=== PATIENT | female | born 1940 | race Caucasian/White ===

== ENCOUNTER 2017-11-14 12:00 | Inpatient (IN) | payer MEDICARE, MEDICAID, SELFPAY ==
[2017-11-14] VITALS (8 sets, daily range): BP systolic 117–155; BP diastolic 68–81; PULSE 72–83; RESP 10–20; TEMP 36.6–36.9; O2SAT 96–100; BMI 19.7
--- NOTE | 2017-11-14 12:32 | CT_ITS ---
STUDY: CT BRAIN WITHOUT CONTRAST REASON FOR EXAM: Female, 77 years old. Drowsiness. RADIATION DOSAGE (If Supplied By Facility): CTDIvol = ( 44.99 ) mGy, DLP = ( 762.36 ) mGycm TECHNIQUE: Transaxial CT imaging of the brain was performed without administration of intravenous contrast material. Individualized dose optimization techniques were used for this CT. COMPARISON: Comparison is made with prior study dated May 15, 2017. FINDINGS: Normal soft tissue structures. The patient is status post right frontal temporal parietal craniotomy. This is unchanged. There is evidence of a prominent CSF space overlying the right frontal lobe most likely secondary to prior surgery. This is unchanged. Stable encephalomalacia in the anterior aspect of the right frontal lobe most likely postsurgical nature. There are areas of decreased attenuation within the white matter tracts of the supratentorial brain, consistent with microvascular disease changes. Normal basal ganglia and thalami. Normal brainstem. Normal cerebellum. There is no intracranial hemorrhage. There are no findings of an acute ischemic infarction. Atherosclerotic calcification of the cavernous portions of the internal carotid arteries bilaterally. Normal visualized paranasal sinuses. CT/Brain/Head without Contrast IMPRESSION: Postoperative changes involving the right frontal lobe as described. No acute abnormality is seen. Electronically Signed: Иван Almanza MD at 14:27 EST Tel [phone], Service support ,
--- NOTE | 2017-11-14 12:32 | RAD_ITS ---
STUDY: X-RAY CHEST REASON FOR EXAM: Female, 77 years old. Nausea and vomiting. History of lung cancer. TECHNIQUE: Single AP portable view of the chest. COMPARISON: Comparison is made with prior study May 15, 2017. FINDINGS: Hyperinflation. Once again, soft tissue prominence is seen in the right suprahilar region with spiculation. This is in keeping with the patient's history of prior lung cancer and radiation therapy with findings of post radiation fibrosis. Stable volume loss in the right hemithorax. There is no demonstrated pleural abnormality. Normal size heart. Normal mediastinum and arnoldo. Normal visualized pulmonary arteries. There is atherosclerotic tortuosity of the aortic arch and descending thoracic aorta. There are degenerative changes of the visualized thoracic spine. Normal visualized ribs, clavicles, and shoulders. There is no demonstrated abnormality of the visualized soft tissue structures of the upper abdomen. RAD/Chest 1 View (Portable) IMPRESSION: Stable examination. No acute abnormality is seen. Electronically Signed: Иван Almanza MD at 14:36 EST Tel [phone], Service support ,
--- NOTE | 2017-11-14 12:32 | EKG12_ITS ---
Test Reason : N/V Blood Pressure : / mmHG Vent. Rate : 075 BPM Atrial Rate : 075 BPM P-R Int : 186 ms QRS Dur : 084 ms QT Int : 398 ms P-R-T Axes : 069 068 065 degrees QTc Int : 444 ms Normal sinus rhythm Normal ECG Confirmed by DENISE VERMA, CARMEN ([id number]), proposal editor RAOUL RONQUILLO ([id number] on 11/19/2017 4:03:27 PM Referred By: LILY Confirmed By:CARMEN WALKER MD
--- NOTE | 2017-11-14 12:33 | CT_ITS ---
STUDY: CT ABDOMEN AND PELVIS WITH CONTRAST REASON FOR EXAM: Female, 77 years old. Abdominal pain. Nausea and vomiting. RADIATION DOSAGE (If Supplied By Facility): CTDIvol = ( 11.75 ) mGy, DLP = ( 273.52 ) mGycm TECHNIQUE: Transaxial images were obtained from the dome of the diaphragm to the symphysis pubis without oral contrast. 100 ml of Isovue 300 contrast was administered. Sagittal and coronal images were reconstructed. Individualized dose optimization techniques were used for this CT. COMPARISON: Comparison is made with prior study dated October 23, 2014. FINDINGS: Mild increased linear markings at the lung bases suggest some mild scarring. The visualized portions of the heart are within normal limits. Normal liver. Normal gallbladder and extrahepatic biliary system. Normal spleen. Normal pancreas. Stable 1.77 x 2.7 cm cystic mass in the left adrenal gland. Normal right kidney. Normal left kidney. Stable 1 cm cyst in the lower pole of the left kidney. Normal visualized stomach. Normal small intestine. Surgical clips are seen in the right hemicolon most likely secondary to prior partial resection. Sigmoid diverticulosis. There is non-visualization of the appendix. There is diffuse atherosclerotic calcification of the abdominal aorta, without a demonstrated aneurysm. Normal inferior vena cava. Normal retroperitoneum. Normal urinary bladder. There is absence of the uterus consistent with a prior hysterectomy. Normal abdominal wall. Levoscoliosis. CT/Abdomen/Pelvis W IV Cont ONLY IMPRESSION: Fecal material is seen in the colon. Stable left adrenal adenoma. Electronically Signed: Иван Almanza MD at 14:34 EST Tel [phone], Service support ,
--- NOTE | 2017-11-14 12:34 | ED.VISSUMM ---
- ER Visit Summary Date of Service: 11/14/17 Chief Complaint: Nausea, vomiting, diarrhea History of Present Illness: The patient is a 77 F presenting with nausea, vomiting, diarrhea. This has been ongoing for the past 2 days. Daughter states she has had several episodes of diarrhea. Denies blood in her stool. No recent antibiotics. She goes to [facility] and states other patients have been ill. She has had subjective fever. She complains of chest pain, shortness of breath, cough. She complains of headache. Daughter states that she passed out, she was able to catch her and she had no injuries. Physical Examination: Vitals are stable. Patient is afebrile. Alert no acute distress. HEENT exam is unremarkable. Neck is supple. Lungs are clear and equal bilaterally. Heart is regular rate and rhythm. Abdomen is soft diffuse tenderness with no rebound or guarding Extremities are unremarkable. Skin is warm and dry. No focal neurologic deficit. Remainder of exam is unremarkable. Emergency Department Course and Treatment: Patient is given IV fluids, Zofran. White blood cell count was 3.6 with hemoglobin of 10.7 and platelets of 133,000. Normal diff. These values are baseline for her. Electrolytes were unremarkable and the BUN was 17 with a creatinine of 0.96 and the BUN/creatinine ratio of 17.7. LFTs are unremarkable and troponin was less than 0.02. Lipase was normal. UA shows 0-5 white blood cells and is positive for nitrites. CT scan of the abdomen and pelvis was remarkable for diverticulosis, evidence of prior right hemicolectomy and a stable left adrenal adenoma. Due to her syncopal episode and concern for dehydration, discussed with the hospitalist for observation. Disposition: Observation Impression: Nausea, vomiting, diarrhea. Syncopal episode This note was generated with [employer] dictation software. It may contain incorrect words, spelling, and punctuation that were not noted in review of the chart prior to signing ED Disposition - Plan for ED Patient: Disposition: Acute Care Hospital [facility] Chief Complaint: Nausea/Vomiting/Diarrhea
[2017-11-14 12:59] LABS: Absolute Lymphocyte Count 0.82 X10^3/ul (0.83-4.51); Absolute Neutrophil Count 2.4 X10^3/uL (2.0-7.7); Basophil# 0.01 X10^3/uL; Basophil% 0.3 % (0-1); Eosinophil# 0.04 X10^3/uL; Eosinophils% 1.1 % (0-5); Hematocrit 33.3 % (37-47); Hemoglobin 10.7 g/dl (12.0-15.0); Lymphocyte # 0.82 X10^3/ul (4.0); Lymphocyte % 22.6 % (19-41); Mean Corp Hgb Conc 32.1 g/gl (32-36); Mean Corpuscular Hgb 29.7 pg (27.0-32.0); Mean Corpuscular Volume 92.5 fL (81-99); Mean Platelet Vol. 10.6 fl (6.2-12.0); Monocyte# 0.34 X10^3/uL; Monocyte% 9.4 % (0-10); Neutrophil # 2.41 X10^3/uL (2.7-7.7); Neutrophil % 66.3 % (47-70); Platelet Count 133 K/mm3 (150-450); RBC Distribution Width CV 13.6 % (11.6-14.6); RBC Distribution Width SD 45.7 fl (35.1-43.9); White Blood Count 3.6 K/mm3 (4.4-11.0)
[2017-11-14 13:00] LABS: POSITIVE COUNT NO; POSITIVE DIFFERENTIAL NO; POSITIVE MORPHOLOGY NO
[2017-11-14 13:20] LABS: ALB/GLOB Ratio 0.9 RATIO (0.9-2.4); AST(SGOT) 14 U/L (15-37); Alanine Aminotransfer ALT/SGPT 9 U/L (13-56); Albumin, Serum 3.3 g/dL (3.2-5.0); Alkaline Phosphatase 108 U/L (45-117); Anion Gap 8 (5-15); BUN 17 mg/dL (7-18); BUN/Creat Ratio 17.7 RATIO (10-20); Calcium,Total 8.4 mg/dL (8.5-10.1); Chloride 109 mmol/L (98-107); Creatinine, Serum 0.96 mg/dL (0.55-1.02); EST Glomerular Filtration Rate 60 mL/min (>60); Est Glom Filt Rate - Afr Amer 72 mL/min (>60); Estimated Creatinine Clearance 34.69 ml/min; Globulin 3.5 g/dL (2.2-4.2); Glucose 90 mg/dL (70-110); Lipase 185 U/L (73-393); Potassium 3.9 mmol/L (3.5-5.1); Protein, Total 6.8 g/dL (6.4-8.2); Sodium Level 143 mmol/L (136-145)
[2017-11-14] MEDS: Ondansetron ODT 4 MG Tablet PO (14:34)
[2017-11-14 14:56] LABS: Mucous, Urine 0 SEEN /hpf (<or=2+); Red Blood Cells-Urine 0 SEEN /hpf (0-5); Squamous Epithelial Cells - UA 0 SEEN /hpf (5-10)
[2017-11-14 15:03] LABS: Color, Urine Yellow (Yellow); Glucose, Dipstick Normal (Normal); Ketone-Dipstick Negative (Negative); Leukocyte Esterase-Dipstick 25 /ul (Negative); Nitrite-Dipstick Positive (Negative); Occult Blood-Urine Negative /ul (Negative); Protein-Dipstick Negative (Negative); Urine Bilirubin Dipstick Negative (Negative); Urine Clarity Clear (Clear); Urine Urobilinogen Normal (Normal)
[2017-11-14 15:09] LABS: Bacteria 2+ /hpf (None Seen); White Blood Cells 0-5 SEEN /hpf (0-5)
--- NOTE | 2017-11-14 15:51 | NURSING ---
DR ELIAS BAUTISTA
--- NOTE | 2017-11-14 15:59 | NURSING ---
216 DEHYDRATION OBS ELIAS
--- NOTE | 2017-11-14 17:16 | PCM.HP.STD ---
<Andres Cabrera - Last Filed: 11/14/17 17:56> Problem List (1) Gastroenteritis Status: Acute (2) Syncope and collapse Status: Acute (3) Dehydration Status: Acute (4) UTI (urinary tract infection) Status: Acute (5) Pancytopenia Status: Chronic (6) Seizures Status: Chronic (7) Hyperlipidemia Status: Chronic (8) Anxiety Status: Chronic (9) Alzheimer's dementia Status: Chronic (10) COPD (chronic obstructive pulmonary disease) Status: Chronic (11) Hypertension Status: Chronic (12) B12 deficiency Status: Chronic (13) Lung cancer Status: Chronic History of Present Illness Date of Admission: 11/14/17 Chief Complaint: Nausea vomiting diarrhea The patient is a 77 year old F with a past medical history of seizure disorder, Parkinson's, lung cancer in remission for several months, metastatic disease to the colon in remission since total colectomy, COPD, Alzheimer's disease who presented to the emergency room with chief complaint of nausea vomiting and diarrhea. Patient began having multiple episodes of vomiting and diarrhea starting yesterday, up to 12 episodes of watery diarrhea yesterday. Oral intake has been diminished, her daughter has been trying to convince her to drink water but she is reluctant as she vomits it back up. Pt also has multiple sick contacts at her adult day care. Patient also had a syncopal episode yesterday she walked into her daughter's room, whom she lives with, said she did not feel well and passed out falling to the floor losing consciousness for about 4 minutes. The daughter did not notice any seizure activity and states she is well familiar with her seizure activity and this did not seem like it was a seizure. She also has some abdominal pain that she describes as all over pain . She does have dysuria as well stating she had some burning yesterday. No fevers or chills. She has a cough with mucus production and burning pain in her throat. Patient's history is also remarkable for multiple episodes of C. difficile ever since she had her total colectomy. [] Past Medical History Past Medical History (Chronic Problems): Chronic Problems Pancytopenia (Chronic) Seizures (Chronic) Seizure disorder, grand mal (Chronic) Hyperlipidemia (Chronic) Anxiety (Chronic) Alzheimer's dementia (Chronic) COPD (chronic obstructive pulmonary disease) (Chronic) Cephalgia (Chronic) Hypertension (Chronic) B12 deficiency (Chronic) Uncontrolled seizures (Chronic) Low back pain (Chronic) Lung cancer (Chronic) Allergies Penicillins [PCN] Allergy (Verified 11/14/17 12:05) Angioedema acetaminophen [From Tylenol] Adverse Reaction (Verified 11/14/17 12:05) Other PER NURSING TO RX PRINTOUT: PT STATES THAT TYLENOL INCREASES THERAPEUTIC KEPPRA LEVELS & THEN IT CAN CAUSE PT TO HAVE SEIZURES WELL lactose Adverse Reaction (Verified 11/14/17 12:05) Vomiting Home Medications: Ambulatory Orders Medication Instructions Recorded Lamotrigine 200 mg PO BID 12/25/15 Memantine HCl [Namenda Xr] 28 mg PO DAILY 12/25/15 Topiramate [Topamax] 100 mg PO BID 12/25/15 Cyanocobalamin (Vitamin B-12) 1,000 mcg PO DAILY 12/30/15 [Vitamin B-12] Polyethylene Glycol 3350 [Miralax] 17 gm PO DAILY PRN 12/30/15 Budesonide/Formoterol 160/4.5 2 puff INHALATION BID 09/19/16 [Symbicort 160/4.5 Mcg Inhaler (SP)] Carbidopa/Levodopa 25/100 [Sinemet 2 tablet PO 0700,1200,1800 09/19/16 25/100] Carbidopa/Levodopa 50/200 [Sinemet 1 tablet PO QHS 09/19/16 CR 50/200] Fluticasone Propionate 2 sprays NASAL DAILY 01/10/17 Levetiracetam [Keppra] 1,500 mg PO BID 11/14/17 Surgical History: cataract, hysterectomy, - - Craniotomy for resection of benign brain tumor in 2004 at [facility] in [place], past history of hemicolectomy in 2010 secondary to colon cancer Psychiatric History: - - Alzheimer's dementia PHARMACIST APPRENTICE History: No pertinent PHARMACIST APPRENTICE history Smoking Status: Former smoker - *Family History Maternal History Items: Renal Disease Paternal History Items: Heart Disease Sibling History Items: Cancer Review of Systems Constitutional: Denies: Chills, Fever, Weight Change HEENT: Denies: Head Aches, Sinus Congestion, Sinus Drainage Cardiovascular: Denies: Chest Pain, Palpitations Respiratory: Reports: Cough. Denies: Shortness of Breath, Shortness of breath at rest, Sputum production, Wheezing Gastrointestinal: Reports: Abdominal Pain, Diarrhea, Nausea, Vomiting Genitourinary: Reports: Dysuria Musculoskeletal: Denies: Joint Pain, Joint Tenderness Skin: Denies: Rash, Wounds Neurological: Reports: - - syncopal episode. Denies: Slurred speech, Confusion, Focal weakness, Numbness, Tingling, Seizures Psychiatric: Denies: Anxiety, Depression, Homicidal Ideations, Suicidal Ideations Hematologic/ Lymphatic: Denies: Easy Bruising, Easy Bleeding VTE Information - Inpt Only VTE Present on Admission: No VTE Mechan Device Prophylaxis: SCD's VTE Pharm Prophylaxis ordered?: No Reason prophylaxis not ordered:: Medical Contraindication Patient Problems: Active and Suspected Problems Gastroenteritis (Acute) Dehydration (Acute) UTI (urinary tract infection) (Acute) Syncope and collapse (Acute) - Physical Exam General: Alert, Oriented x3, Cooperative HEENT: Atraumatic, PERRLA, EOMI, Normocephalic, - - hard of hearing Neck: Supple, No JVD, Negative Carotid Bruits Lungs: Clear to auscultation, Normal air movement Cardiovascular: Regular rate, No murmurs Abdomen: Soft, Hyperactive Bowel Sounds, Tender - diffuse tenderness Extremities: No edema, Capillary Refill Less than 3 Seconds Skin: No rashes, No breakdown Musculoskeletal: No Tenderness to Palpation of Joints or Extremities Neurological: Cranial nerves II-XII grossly intact Psych/Mental Status: Normal Affect, Appropriate, Alert and oriented to time, place, person, mood and affect Vital Signs Temp Pulse Resp BP Pulse Ox 98.4 F 80 18 117/80 98 11/14/17 12:01 11/14/17 15:56 11/14/17 15:56 11/14/17 15:56 11/14/17 15:56 Assessment/Plan Active and Suspected Problems Gastroenteritis (Acute) Dehydration (Acute) UTI (urinary tract infection) (Acute) Syncope and collapse (Acute) 1. Acute gastroenteritis suspect viral - 2 days of frequent episodes of nausea and vomiting. decreased PO water and food intake. Multiple sick contacts at adult day care. Rule out C diff as pt has hx of multiple episodes. CT abdomen with fecal matter, left stable adrenal adenoma. No white count or fever. Will provide IV fluids, BRAT diet, prn zofran. She has some burning in her throat as well so I will start PO protonix while here, avoid pepcid 2/2 anticholinergic effect. 2. Syncopal episode - suspect 2/2 orthostatic syncope from dehydration 2/2 above. No seizure activity. EKG negative, troponin negative. Maintain on MS tele and check orthostatic vitals, repeat EKG in AM. 3. Acute UTI - pt complaining of burning with urination and has a + UA, culture pending. Start cipro, anaphylaxis allergy to PCNs. Transition to PO tomorrow if tolerates pills. 4. Pancytopenia - likely 2/2 hx cancer hx. Trend for now, no heparin products. 5. Hx NSCLC in remission x several months previously treated with chemo and radiation, oncologist is Dr. Villalobos. She also has had mets to her colon and was treated with a complete colectomy after which she has had multiple episodes of C diff. 6. Hx COPD - CXR clear, no SOB, no O2 demands. PRN aerosols and IS. 7. Hx seizures - continue home medications. 8. Hx Parkinsons - continue home meds 9. Alzheimers dementia - daughter says to except behavioral changes in the hospital. 10. B12 deficiency - on replacement DVT ppx: SCDs - no chemoppx with thrombocytopenia DC planning: PTOT. Lives at home with daughter and goes to adult day care. This patient was seen by Andres Cabrera PA-C under the supervision of Doctor Freddy. <Behzad Hayes - Last Filed: 11/14/17 20:35> History of Present Illness Seen and examined. Patient has history of colon cancer status post colectomy with possible ileorectal anastomosis, lung cancer status post chemoradiation last 1 in January 2017, in remission but has chronic cough due to COPD came to ER with nausea, vomiting and diarrhea. Patient also passed out for about 4 minutes in the morning after she felt dizzy, lightheaded probably from dehydration. She had about 10 times loose bowel movement after she passed hard stool. She denies any recent antibiotic in last [address] abdomen shows fecal material in the colon. Stable left adrenal adenoma. Chest x-ray no acute abnormality. CT brain shows postoperative changes involving the right frontal lobe. Past Medical History Allergies Penicillins [PCN] Allergy (Verified 11/14/17 12:05) Angioedema acetaminophen [From Tylenol] Adverse Reaction (Verified 11/14/17 12:05) Other PER NURSING TO RX PRINTOUT: PT STATES THAT TYLENOL INCREASES THERAPEUTIC KEPPRA LEVELS & THEN IT CAN CAUSE PT TO HAVE SEIZURES WELL lactose Adverse Reaction (Verified 11/14/17 12:05) Vomiting VTE Information - Inpt Only VTE Mechan Device Prophylaxis: SCD's VTE Pharm Prophylaxis ordered?: No - Physical Exam General: Alert HEENT: - Lungs: Diminished, Rhonchi Cardiovascular: Regular Rhythm, Normal S1, Normal S2 Abdomen: Soft, Hyperactive Bowel Sounds, Tender Extremities: No edema Musculoskeletal: Arthritic Changes, Muscle Wasting Neurological: Cranial nerves II-XII grossly intact Vital Signs Temp Pulse Resp BP Pulse Ox 98.3 F 75 18 155/75 H 100 11/14/17 17:46 11/14/17 18:00 11/14/17 17:46 11/14/17 17:46 11/14/17 17:46 Oxygen Delivery Method Room Air Weight: 101 lb 0.006 oz Body Mass Index (BMI) 19.7 Intake and Output for Last 24 Hours 11/12/17 11/13/17 11/14/17 23:59 23:59 23:59 Intake Total 100 / 100 Balance 100 / 100 Assessment/Plan This patient was seen in conjunction with Andres ALVARADO. I have independently interviewed and examined the patient and reviewed pertinent history, examination findings, laboratory and plan of management. I have reviewed the note and agree with the documented findings with the few additional points. In brief, patient is admitted for acute gastroenteritis possible viral gastroenteritis and syncope most probably orthostatic from dehydration or vasovagal. EKG shows normal sinus rhythm at 75 bpm. She does not have coronary artery disease or CHF history. Orthostatic vitals were ordered. She also has leukocyte esterase and nitrate positive. She does not have pyuria. She denies lower urinary tract symptoms. Follow urine culture and if positive can start antibiotic. I have discussed my assessment with Andres ALVARADO and orders have been reviewed. Code Visit Inpatient E&M: 32422 Init Hosp L3
--- NOTE | 2017-11-14 17:26 | HP.PCM_ITS ---
Addendum entered and electronically signed by JENNY Rivero 11/14/17 18:00: Code Visit Addendum: UTI - DC ciprofloxacin as last Urine culture was E coli resistant to fluoroquinolones. As she has anaphylaxis to penicillins, will avoid cephalosporins, and will avoid bactrim given dehydration, and avoid nitrofurantoin as she is elderly with dementia. Will give 1 dose of fosfomycin 3 g po. Original Note: <Andres Cabrera - Last Filed: 11/14/17 17:56> Problem List (1) Gastroenteritis Status: Acute (2) Syncope and collapse Status: Acute (3) Dehydration Status: Acute (4) UTI (urinary tract infection) Status: Acute (5) Pancytopenia Status: Chronic (6) Seizures Status: Chronic (7) Hyperlipidemia Status: Chronic (8) Anxiety Status: Chronic (9) Alzheimer's dementia Status: Chronic (10) COPD (chronic obstructive pulmonary disease) Status: Chronic (11) Hypertension Status: Chronic (12) B12 deficiency Status: Chronic (13) Lung cancer Status: Chronic History of Present Illness Date of Admission: 11/14/17 Chief Complaint: Nausea vomiting diarrhea The patient is a 77 year old F with a past medical history of seizure disorder, Parkinson's, lung cancer in remission for several months, metastatic disease to the colon in remission since total colectomy, COPD, Alzheimer's disease who presented to the emergency room with chief complaint of nausea vomiting and diarrhea. Patient began having multiple episodes of vomiting and diarrhea starting yesterday, up to 12 episodes of watery diarrhea yesterday. Oral intake has been diminished, her daughter has been trying to convince her to drink water but she is reluctant as she vomits it back up. Pt also has multiple sick contacts at her adult day care. Patient also had a syncopal episode yesterday she walked into her daughter's room, whom she lives with, said she did not feel well and passed out falling to the floor losing consciousness for about 4 minutes. The daughter did not notice any seizure activity and states she is well familiar with her seizure activity and this did not seem like it was a seizure. She also has some abdominal pain that she describes as all over pain . She does have dysuria as well stating she had some burning yesterday. No fevers or chills. She has a cough with mucus production and burning pain in her throat. Patient's history is also remarkable for multiple episodes of C. difficile ever since she had her total colectomy. [] Past Medical History Past Medical History (Chronic Problems): Chronic Problems Pancytopenia (Chronic) Seizures (Chronic) Seizure disorder, grand mal (Chronic) Hyperlipidemia (Chronic) Anxiety (Chronic) Alzheimer's dementia (Chronic) COPD (chronic obstructive pulmonary disease) (Chronic) Cephalgia (Chronic) Hypertension (Chronic) B12 deficiency (Chronic) Uncontrolled seizures (Chronic) Low back pain (Chronic) Lung cancer (Chronic) Allergies Penicillins [PCN] Allergy (Verified 11/14/17 12:05) Angioedema acetaminophen [From Tylenol] Adverse Reaction (Verified 11/14/17 12:05) Other PER NURSING TO RX PRINTOUT: PT STATES THAT TYLENOL INCREASES THERAPEUTIC KEPPRA LEVELS & THEN IT CAN CAUSE PT TO HAVE SEIZURES WELL lactose Adverse Reaction (Verified 11/14/17 12:05) Vomiting Home Medications: Ambulatory Orders Medication Instructions Recorded Lamotrigine 200 mg PO BID 12/25/15 Memantine HCl [Namenda Xr] 28 mg PO DAILY 12/25/15 Topiramate [Topamax] 100 mg PO BID 12/25/15 Cyanocobalamin (Vitamin B-12) 1,000 mcg PO DAILY 12/30/15 [Vitamin B-12] Polyethylene Glycol 3350 [Miralax] 17 gm PO DAILY PRN 12/30/15 Budesonide/Formoterol 160/4.5 2 puff INHALATION BID 09/19/16 [Symbicort 160/4.5 Mcg Inhaler (SP)] Carbidopa/Levodopa 25/100 [Sinemet 2 tablet PO 0700,1200,1800 09/19/16 25/100] Carbidopa/Levodopa 50/200 [Sinemet 1 tablet PO QHS 09/19/16 CR 50/200] Fluticasone Propionate 2 sprays NASAL DAILY 01/10/17 Levetiracetam [Keppra] 1,500 mg PO BID 11/14/17 Surgical History: cataract, hysterectomy, - - Craniotomy for resection of benign brain tumor in 2004 at [facility] in [place], past history of hemicolectomy in 2010 secondary to colon cancer Psychiatric History: - - Alzheimer's dementia RECEP History: No pertinent RECEP history Smoking Status: Former smoker - *Family History Maternal History Items: Renal Disease Paternal History Items: Heart Disease Sibling History Items: Cancer Review of Systems Constitutional: Denies: Chills, Fever, Weight Change HEENT: Denies: Head Aches, Sinus Congestion, Sinus Drainage Cardiovascular: Denies: Chest Pain, Palpitations Respiratory: Reports: Cough. Denies: Shortness of Breath, Shortness of breath at rest, Sputum production, Wheezing Gastrointestinal: Reports: Abdominal Pain, Diarrhea, Nausea, Vomiting Genitourinary: Reports: Dysuria Musculoskeletal: Denies: Joint Pain, Joint Tenderness Skin: Denies: Rash, Wounds Neurological: Reports: - - syncopal episode. Denies: Slurred speech, Confusion , Focal weakness, Numbness, Tingling, Seizures Psychiatric: Denies: Anxiety, Depression, Homicidal Ideations, Suicidal Ideations Hematologic/ Lymphatic: Denies: Easy Bruising, Easy Bleeding VTE Information - Inpt Only VTE Present on Admission: No VTE Mechan Device Prophylaxis: SCD's VTE Pharm Prophylaxis ordered?: No Reason prophylaxis not ordered:: Medical Contraindication Patient Problems: Active and Suspected Problems Gastroenteritis (Acute) Dehydration (Acute) UTI (urinary tract infection) (Acute) Syncope and collapse (Acute) - Physical Exam General: Alert, Oriented x3, Cooperative HEENT: Atraumatic, PERRLA, EOMI, Normocephalic, - - hard of hearing Neck: Supple, No JVD, Negative Carotid Bruits Lungs: Clear to auscultation, Normal air movement Cardiovascular: Regular rate, No murmurs Abdomen: Soft, Hyperactive Bowel Sounds, Tender - diffuse tenderness Extremities: No edema, Capillary Refill Less than 3 Seconds Skin: No rashes, No breakdown Musculoskeletal: No Tenderness to Palpation of Joints or Extremities Neurological: Cranial nerves II-XII grossly intact Psych/Mental Status: Normal Affect, Appropriate, Alert and oriented to time, place, person, mood and affect Vital Signs Temp Pulse Resp BP Pulse Ox 98.4 F 80 18 117/80 98 11/14/17 12:01 11/14/17 15:56 11/14/17 15:56 11/14/17 15:56 11/14/17 15:56 Assessment/Plan Active and Suspected Problems Gastroenteritis (Acute) Dehydration (Acute) UTI (urinary tract infection) (Acute) Syncope and collapse (Acute) 1. Acute gastroenteritis suspect viral - 2 days of frequent episodes of nausea and vomiting. decreased PO water and food intake. Multiple sick contacts at adult day care. Rule out C diff as pt has hx of multiple episodes. CT abdomen with fecal matter, left stable adrenal adenoma. No white count or fever. Will provide IV fluids, BRAT diet, prn zofran. She has some burning in her throat as well so I will start PO protonix while here, avoid pepcid 2/2 anticholinergic effect. 2. Syncopal episode - suspect 2/2 orthostatic syncope from dehydration 2/2 above. No seizure activity. EKG negative, troponin negative. Maintain on MS tele and check orthostatic vitals, repeat EKG in AM. 3. Acute UTI - pt complaining of burning with urination and has a + UA, culture pending. Start cipro, anaphylaxis allergy to PCNs. Transition to PO tomorrow if tolerates pills. 4. Pancytopenia - likely 2/2 hx cancer hx. Trend for now, no heparin products. 5. Hx NSCLC in remission x several months previously treated with chemo and radiation, oncologist is Dr. Villalobos. She also has had mets to her colon and was treated with a complete colectomy after which she has had multiple episodes of C diff. 6. Hx COPD - CXR clear, no SOB, no O2 demands. PRN aerosols and IS. 7. Hx seizures - continue home medications. 8. Hx Parkinsons - continue home meds 9. Alzheimers dementia - daughter says to except behavioral changes in the hospital. 10. B12 deficiency - on replacement DVT ppx: SCDs - no chemoppx with thrombocytopenia DC planning: PTOT. Lives at home with daughter and goes to adult day care. This patient was seen by Andres Cabrera PA-C under the supervision of Doctor Freddy. <Behzad Hayes - Last Filed: 11/14/17 20:35> History of Present Illness Seen and examined. Patient has history of colon cancer status post colectomy with possible ileorectal anastomosis, lung cancer status post chemoradiation last 1 in January 2017, in remission but has chronic cough due to COPD came to ER with nausea, vomiting and diarrhea. Patient also passed out for about 4 minutes in the morning after she felt dizzy, lightheaded probably from dehydration. She had about 10 times loose bowel movement after she passed hard stool. She denies any recent antibiotic in last [address] abdomen shows fecal material in the colon. Stable left adrenal adenoma. Chest x-ray no acute abnormality. CT brain shows postoperative changes involving the right frontal lobe. Past Medical History Allergies Penicillins [PCN] Allergy (Verified 11/14/17 12:05) Angioedema acetaminophen [From Tylenol] Adverse Reaction (Verified 11/14/17 12:05) Other PER NURSING TO RX PRINTOUT: PT STATES THAT TYLENOL INCREASES THERAPEUTIC KEPPRA LEVELS & THEN IT CAN CAUSE PT TO HAVE SEIZURES WELL lactose Adverse Reaction (Verified 11/14/17 12:05) Vomiting VTE Information - Inpt Only VTE Mechan Device Prophylaxis: SCD's VTE Pharm Prophylaxis ordered?: No - Physical Exam General: Alert HEENT: - Lungs: Diminished, Rhonchi Cardiovascular: Regular Rhythm, Normal S1, Normal S2 Abdomen: Soft, Hyperactive Bowel Sounds, Tender Extremities: No edema Musculoskeletal: Arthritic Changes, Muscle Wasting Neurological: Cranial nerves II-XII grossly intact Vital Signs Temp Pulse Resp BP Pulse Ox 98.3 F 75 18 155/75 H 100 11/14/17 17:46 11/14/17 18:00 11/14/17 17:46 11/14/17 17:46 11/14/17 17:46 Oxygen Delivery Method Room Air Weight: 101 lb 0.006 oz Body Mass Index (BMI) 19.7 Intake and Output for Last 24 Hours 11/12/17 11/13/17 11/14/17 23:59 23:59 23:59 Intake Total 100 / 100 Balance 100 / 100 Assessment/Plan This patient was seen in conjunction with Andres ALVARADO. I have independently interviewed and examined the patient and reviewed pertinent history, examination findings, laboratory and plan of management. I have reviewed the note and agree with the documented findings with the few additional points. In brief, patient is admitted for acute gastroenteritis possible viral gastroenteritis and syncope most probably orthostatic from dehydration or vasovagal. EKG shows normal sinus rhythm at 75 bpm. She does not have coronary artery disease or CHF history. Orthostatic vitals were ordered. She also has leukocyte esterase and nitrate positive. She does not have pyuria. She denies lower urinary tract symptoms. Follow urine culture and if positive can start antibiotic. I have discussed my assessment with Andres ALVARADO and orders have been reviewed. Code Visit Inpatient E&M: 65611 Init Hosp L3
[2017-11-14] MEDS: 0.9% Normal Saline 1,000 ML 100 ML IV (17:41)
[2017-11-14] MEDS: Pantoprazole Sodium 40 MG Tablet PO (18:12)
[2017-11-14] MEDS: Carbidopa/Levodopa 25/100 Tablet PO (18:12)
[2017-11-14] MEDS: FOSFOMYCIN TROMETHAMINE 3 GM PACKET PO (21:06)
[2017-11-14] MEDS: Memantine Hydrochloride 10 MG Tablet PO (21:06)
[2017-11-14] MEDS: levETIRAcetam 750 MG Tablet 1500 MG PO (21:06)
[2017-11-14] MEDS: lamoTRIgine 100 MG Tablet 200 MG PO (21:07)
[2017-11-14] MEDS: Albuterol 2.5 MG/3 ML VIAL.NEB. INHALATION (21:07)
[2017-11-14] MEDS: Topiramate 100 MG Tablet PO (21:07)
[2017-11-14] MEDS: Budesonide Respules 0.5 MG/2 ML AMPUL.NEB. INHALATION (21:08)
[2017-11-14] MEDS: CARBIDOPA/LEVODOPA CR 50/200 Tablet PO (21:10)
[2017-11-15] VITALS (14 sets, daily range): BP systolic 110–147; BP diastolic 61–72; PULSE 70–85; RESP 18–20; TEMP 36.8–36.9; O2SAT 94–99
[2017-11-15] MEDS: 0.9% Normal Saline 1,000 ML 100 ML IV (02:35)
--- NOTE | 2017-11-15 05:55 | EKG12_ITS ---
Test Reason : AM EKG Blood Pressure : / mmHG Vent. Rate : 073 BPM Atrial Rate : 073 BPM P-R Int : 194 ms QRS Dur : 086 ms QT Int : 410 ms P-R-T Axes : 064 062 062 degrees QTc Int : 451 ms Normal sinus rhythm Normal ECG Confirmed by FRANK VERMA, INDIRA ([id number]), pictures editor RAOUL RONQUILLO ([id number]) on 11/26/2017 2:14:24 PM Referred By: DR GRIFFIN Confirmed By:INDIRA MARIE MD
[2017-11-15 06:19] LABS: Absolute Lymphocyte Count 0.83 X10^3/ul (0.83-4.51); Absolute Neutrophil Count 2.1 X10^3/uL (2.0-7.7); Basophil# 0.02 X10^3/uL; Basophil% 0.6 % (0-1); Eosinophil# 0.05 X10^3/uL; Eosinophils% 1.5 % (0-5); Hematocrit 31.3 % (37-47); Hemoglobin 10.2 g/dl (12.0-15.0); Lymphocyte # 0.83 X10^3/ul (4.0); Mean Corp Hgb Conc 32.6 g/gl (32-36); Mean Corpuscular Hgb 30.3 pg (27.0-32.0); Mean Corpuscular Volume 92.9 fL (81-99); Mean Platelet Vol. 10.8 fl (6.2-12.0); Monocyte# 0.29 X10^3/uL; Monocyte% 8.7 % (0-10); Neutrophil # 2.13 X10^3/uL (2.7-7.7); Neutrophil % 64.2 % (47-70); Platelet Count 132 K/mm3 (150-450); RBC Distribution Width CV 13.5 % (11.6-14.6); RBC Distribution Width SD 43.8 fl (35.1-43.9); Red Blood Count 3.37 M/mm3 (4.2-5.4); White Blood Count 3.3 K/mm3 (4.4-11.0)
[2017-11-15 06:20] LABS: POSITIVE COUNT NO; POSITIVE DIFFERENTIAL NO; POSITIVE MORPHOLOGY NO
[2017-11-15 06:36] LABS: Anion Gap 8 (5-15); BUN 13 mg/dL (7-18); BUN/Creat Ratio 15.6 RATIO (10-20); Calcium,Total 8.1 mg/dL (8.5-10.1); Chloride 112 mmol/L (98-107); Creatinine, Serum 0.83 mg/dL (0.55-1.02); EST Glomerular Filtration Rate 70 mL/min (>60); Est Glom Filt Rate - Afr Amer 85 mL/min (>60); Estimated Creatinine Clearance 40.12 ml/min; Glucose 91 mg/dL (70-110); Potassium 3.9 mmol/L (3.5-5.1); Sodium Level 143 mmol/L (136-145)
[2017-11-15] MEDS: Carbidopa/Levodopa 25/100 Tablet PO ×3 (06:43→17:01)
[2017-11-15] MEDS: Albuterol 2.5 MG/3 ML VIAL.NEB. INHALATION ×3 (07:33→19:24)
[2017-11-15] MEDS: Budesonide Respules 0.5 MG/2 ML AMPUL.NEB. INHALATION ×2 (07:34→19:24)
--- NOTE | 2017-11-15 07:37 | PN_ITS ---
Patient Problems: Active and Suspected Problems Gastroenteritis (Acute) Dehydration (Acute) UTI (urinary tract infection) (Acute) Syncope and collapse (Acute) Subjective: Patient is a 77-year-old female with a past medical history of non-small cell lung cancer with mets to the colon(S/P R hemicolectomy), seizure disorder, Parkinson's disease, COPD, Alzheimer's disease, hypertension, B12 deficiency pancytopenia and hyperlipidemia who presented to the [facility] emergency room on 11/14/2017 complaining of nausea/vomiting/diarrhea. she has not been eating or drinking for 3 days and had a syncopal episode at home. She has a history of multiple episodes of Clostridium difficile. She addtiionally complained of dysuria. Vital signs at presentation to the emergency room were temp 98.4, pulse rate 83, blood pressure 135/68, respiratory rate 17 and she was 97-100% saturated on room air. White blood cell count was 3.6 with hemoglobin of 10.7 and platelets of 133,000. Normal diff. These values are baseline for her. Electrolytes were unremarkable and the BUN was 17 with a creatinine of 0.96 and the BUN/creatinine ratio of 17.7. LFTs are unremarkable and troponin was less than 0.02. Lipase was normal. UA shows 0-5 white blood cells and is positive for nitrites. CT scan of the abdomen and pelvis was remarkable for diverticulosis, evidence of prior right hemicolectomy and a stable left adrenal adenoma. Stool for CDIFF and enteric pathogen panel have been ordered but not collected. No BM's since presentation She has been afebrile since admission. Fluid balance is +949 since admission. CBC is stable today. BUN is down to 13 and the creatinine is 0.83 today. Denies any diarrhea. She is passing gas. No vomiting but telling me her stomach hurts. She wants an advance in her diet however. No cough. did well with therapy - Physical Exam General: Alert, Cooperative, Well developed, Confused - but at baseline per her dtr-in-law HEENT: Atraumatic, PERRLA, EOMI Oral: Dry Mucosa Neck: Supple, No JVD Lungs: Clear to auscultation, No wheeze, No rales Cardiovascular: Regular rate, Regular Rhythm, Normal S1, Normal S2, No Gallop Abdomen: Bowel Sounds Present, Soft, Non-Distended, - - noguarding with palpation Extremities: No cyanosis, No edema Skin: No rashes, No breakdown Psych/Mental Status: Normal Affect, Appropriate Vital Signs Temp Pulse Resp BP Pulse Ox 98.3 F 74 18 141/72 H 95 11/15/17 02:34 11/15/17 04:00 11/15/17 02:34 11/15/17 02:34 11/15/17 02:34 Oxygen Delivery Method Room Air Weight: 101 lb 0.006 oz Body Mass Index (BMI) 19.7 Intake and Output for Last 24 Hours 11/13/17 11/14/17 11/15/17 23:59 23:59 23:59 Intake Total 100 / 100 1349 / 1349 Output Total 400 / 400 Balance 100 / 100 949 / 949 Laboratory Tests Past 24 Hrs 11/15/17 11/15/17 05:40 05:40 WBC 3.3 L RBC 3.37 L Hgb 10.2 L Hct 31.3 L MCV 92.9 MCH 30.3 MCHC 32.6 RDW 13.5 RDW Differential 43.8 Plt Count 132 L MPV 10.8 Immature Gran % (Auto) 0.000 Neut % (Auto) 64.2 Lymph % (Auto) 25.0 Wilbarger % (Auto) 8.7 Eos % (Auto) 1.5 Baso % (Auto) 0.6 Absolute Neuts (auto) 2.1 Absolute Lymphs (auto) 0.83 Total Counted Not Reportable Sodium 143 Potassium 3.9 Chloride 112 H Carbon Dioxide 23.0 Anion Gap 8 BUN 13 Creatinine 0.83 Estim Creat Clear Calc 40.12 Est GFR (MDRD) Af Amer 85 Est GFR (MDRD) Non-Af 70 BUN/Creatinine Ratio 15.6 Glucose 91 Calcium 8.1 L Assessment/Plan Active and Suspected Problems Gastroenteritis (Acute) Dehydration (Acute) UTI (urinary tract infection) (Acute) Syncope and collapse (Acute) Impressions 1. UTI ruled out - she is afebrile with a normal diff and there was no pyuria. Denies dysuria today.....lk=ikely had some burning because the urine was so concentrated 2. dementia 3. NSCL CA with mets to the colon, S/P subtotal colectomy 4. Parkinson's disease 5. Seizure disorder 6. COPD 7. HTN 8. chronic pancytopenia continue to hydrate. Recheck lab in the AM Advance the diet to full liquid no caffeine possible DC tomorrow if she tolerates the increase in the diet. Code Visit Inpatient E&M: 98229 Subs Hosp L2
[2017-11-15] MEDS: Cyanocobalamin 500 MCG Tablet 1000 MCG PO (08:49)
[2017-11-15] MEDS: Topiramate 100 MG Tablet PO ×2 (08:49→20:48)
[2017-11-15] MEDS: Pantoprazole Sodium 40 MG Tablet PO (08:50)
[2017-11-15] MEDS: Memantine Hydrochloride 10 MG Tablet PO ×2 (08:50→20:48)
[2017-11-15] MEDS: Ibuprofen 600 MG Tablet PO ×2 (08:50→20:49)
[2017-11-15] MEDS: levETIRAcetam 750 MG Tablet 1500 MG PO ×2 (08:50→20:48)
[2017-11-15] MEDS: lamoTRIgine 100 MG Tablet 200 MG PO ×2 (08:50→20:49)
[2017-11-15] MEDS: Fluticasone 0.05% 1 SPRAY NASAL.SRY 2 SPRAY NASAL (09:01)
[2017-11-15] MEDS: Dicyclomine 10 MG Capsule PO ×2 (11:52→17:01)
--- NOTE | 2017-11-15 14:53 | CHAPLAIN ---
Type of Pastoral Visit _x__ Initial Visit ___ Follow-up Visit ___ On-call Visit ___ General Patient Visit ___ Spiritual Assessment ___ Family Conference ___ Bereavement ___ Rapid Response ___ Code Blue ___ Other (describe below) Pastoral Care Referral From _x__ Patient ___ Family ___ Nurse ___ Physician ___ Exploration Engineer ___ Acid Conditioning Worker ___ Other (describe below) Sacrament/Intervention _x__ Active listening ___ Anointing ___ Faith ___ Bereavement ___ Communion ___ Alexia exploration ___ _x__ Life review _x__ Prayer ___ Reconciliation ___ Sacrament of Sick ___ Supportive presence ___ Wedding ___ Other (describe below) Pastoral Comments patient and her family are looking for a better place to live and she is worried about this issue;
[2017-11-15] MEDS: CARBIDOPA/LEVODOPA CR 50/200 Tablet PO (20:50)
[2017-11-16] VITALS (9 sets, daily range): BP systolic 127–151; BP diastolic 67–84; PULSE 70–92; RESP 18–19; TEMP 36.4–36.8; O2SAT 96–99
[2017-11-16] MEDS: Carbidopa/Levodopa 25/100 Tablet PO ×3 (05:57→16:57)
[2017-11-16] MEDS: Dicyclomine 10 MG Capsule PO ×3 (05:57→15:55)
[2017-11-16] MEDS: 0.9% NaCl Peripheral Flush Adult/Peds IV (07:24)
[2017-11-16] MEDS: Albuterol 2.5 MG/3 ML VIAL.NEB. INHALATION (07:24)
[2017-11-16] MEDS: Ondansetron 4 MG/2 ML Vial IV (07:24)
[2017-11-16] MEDS: Budesonide Respules 0.5 MG/2 ML AMPUL.NEB. INHALATION (07:24)
--- NOTE | 2017-11-16 07:35 | NURSING ---
upon standing pt to use BRP pt complaints of nausea. while standing the pt legs go weak. assist pt to sit on side of bed. pt walking into bathroom assisted by this RN and primary RN. pt states feeling dizzy and like she could pass out. Assisted back to bed and assessment completed. vitals stable and assessment negative besides complaint of nausea, Zofran given. Primary RN made aware will continue to monitor.
[2017-11-16 07:59] LABS: Absolute Lymphocyte Count 0.71 X10^3/ul (0.83-4.51); Absolute Neutrophil Count 2.5 X10^3/uL (2.0-7.7); Basophil# 0.01 X10^3/uL; Basophil% 0.3 % (0-1); Eosinophil# 0.08 X10^3/uL; Eosinophils% 2.3 % (0-5); Hematocrit 33.2 % (37-47); Hemoglobin 10.6 g/dl (12.0-15.0); Lymphocyte # 0.71 X10^3/ul (4.0); Mean Corp Hgb Conc 31.9 g/gl (32-36); Mean Corpuscular Hgb 29.5 pg (27.0-32.0); Mean Corpuscular Volume 92.5 fL (81-99); Mean Platelet Vol. 10.5 fl (6.2-12.0); Monocyte# 0.29 X10^3/uL; Monocyte% 8.2 % (0-10); Neutrophil # 2.46 X10^3/uL (2.7-7.7); Neutrophil % 69.2 % (47-70); Platelet Count 137 K/mm3 (150-450); RBC Distribution Width CV 13.5 % (11.6-14.6); RBC Distribution Width SD 44.5 fl (35.1-43.9); Red Blood Count 3.59 M/mm3 (4.2-5.4); White Blood Count 3.6 K/mm3 (4.4-11.0)
[2017-11-16 08:05] LABS: POSITIVE COUNT NO; POSITIVE DIFFERENTIAL NO; POSITIVE MORPHOLOGY NO
[2017-11-16 08:06] LABS: Anion Gap 11 (5-15); BUN 9 mg/dL (7-18); BUN/Creat Ratio 11.1 RATIO (10-20); Calcium,Total 8.4 mg/dL (8.5-10.1); Chloride 110 mmol/L (98-107); Creatinine, Serum 0.81 mg/dL (0.55-1.02); EST Glomerular Filtration Rate 73 mL/min (>60); Est Glom Filt Rate - Afr Amer 88 mL/min (>60); Estimated Creatinine Clearance 41.12 ml/min; Glucose 87 mg/dL (70-110); Potassium 4.2 mmol/L (3.5-5.1); Sodium Level 142 mmol/L (136-145)
[2017-11-16] MEDS: Cyanocobalamin 500 MCG Tablet 1000 MCG PO (08:37)
[2017-11-16] MEDS: Fluticasone 0.05% 1 SPRAY NASAL.SRY 2 SPRAY NASAL (08:38)
[2017-11-16] MEDS: lamoTRIgine 100 MG Tablet 200 MG PO (08:38)
[2017-11-16] MEDS: levETIRAcetam 750 MG Tablet 1500 MG PO (08:38)
[2017-11-16] MEDS: Memantine Hydrochloride 10 MG Tablet PO (08:38)
[2017-11-16] MEDS: Topiramate 100 MG Tablet PO (08:39)
[2017-11-16] MEDS: Pantoprazole Sodium 40 MG Tablet PO (08:39)
[2017-11-16] MEDS: Ibuprofen 600 MG Tablet PO (09:59)
--- NOTE | 2017-11-16 13:20 | CASEMGMT ---
DC PLAN: home with family support. No new needs identified. Cynthia BSN RN ACM
--- NOTE | 2017-11-16 18:44 | DCINST_ITS ---
- Discharge Diagnoses Current Active Problems: Current Active and Chronic Problems Gastroenteritis (Acute) Pancytopenia (Chronic) Dehydration (Acute) UTI (urinary tract infection) (Acute) Syncope and collapse (Acute) You will use the following diet at home:: Other - resume your usual diet....no caffeine for the next week because it increases diarrhea Your food should be the consistency of: Regular Your liquids should be the consistency of: Regular/Thin Discharge Activity: Return to Normal Activity Call your doctor if you observe: Fever of 101 or Higher, - - Recurrent nausea/ vomiting/diarrhea. Worsening abdominal pain or cramping. Instructions: ED Gastroenteritis Viral Additional Instructions: You may want to hold off on any Miralax for a few days until you are sure the diarrhea has resolved. If she has diarrhea you can try pepto-bismol, Kaopectate, immodium. All are available over the counter at the pharmacy. Pending Tests on Discharge: enteric pathogen panel Allergies/Adverse Reactions: Allergies Penicillins [PCN] Allergy (Verified 11/14/17 12:05) Angioedema acetaminophen [From Tylenol] Adverse Reaction (Verified 11/14/17 12:05) Other PER NURSING TO RX PRINTOUT: PT STATES THAT TYLENOL INCREASES THERAPEUTIC KEPPRA LEVELS & THEN IT CAN CAUSE PT TO HAVE SEIZURES WELL lactose Adverse Reaction (Verified 11/14/17 12:05) Vomiting Medications to take at Discharge Lamotrigine 200 mg PO BID 12/25/15 Memantine HCl [Namenda Xr] 28 mg PO DAILY 12/25/15 Topiramate [Topamax] 100 mg PO BID 12/25/15 Cyanocobalamin (Vitamin B-12) [Vitamin B-12] 1,000 mcg PO DAILY 12/30/15 Polyethylene Glycol 3350 [Miralax] 17 gm PO DAILY PRN 12/30/15 Budesonide/Formoterol 160/4.5 [Symbicort 160/4.5 Mcg Inhaler (SP)] 2 puff INHALATION BID 09/19/16 Carbidopa/Levodopa 25/100 [Sinemet 25/100] 2 tablet PO 0700,1200,1800 09/19/16 Carbidopa/Levodopa 50/200 [Sinemet CR 50/200] 1 tablet PO QHS 09/19/16 Fluticasone Propionate 2 sprays NASAL DAILY 01/10/17 Levetiracetam [Keppra] 1,500 mg PO BID 11/14/17 Dicyclomine HCl [Bentyl] 10 mg PO TIDAC PRN #10 cap 11/16/17 The following prescriptions were given: Dicyclomine HCl [Bentyl] 10 mg PO TIDAC PRN #10 cap PRN Reason: abdominal cramping Primary Care Physician: NOT,DEFINED [NON-STAFF] - Proposed Discharge Date: 11/16/17
--- NOTE | 2017-11-16 18:52 | PCM.DC.SUM ---
Discharge Date and Diagnosis Date of Admission: 11/14/17 Date of Discharge: 11/16/17 - Primary Discharge Diagnosis Active and Suspected Problems Viral Gastroenteritis (Acute) Dehydration (Acute) Syncope and collapse (Acute) - due to dehydration and orthostasis - Secondary Discharge Diagnosis Chronic Problems Pancytopenia (Chronic) Seizure disorder, grand mal (Chronic) Hyperlipidemia (Chronic) Anxiety (Chronic) Alzheimer's dementia (Chronic) COPD (chronic obstructive pulmonary disease) (Chronic) Cephalgia (Chronic) Hypertension (Chronic) B12 deficiency (Chronic) Uncontrolled seizures (Chronic) Low back pain (Chronic) Lung cancer (Chronic) Hospital Course and Treatment Imaging Results: Clinical Impression(s) from Imaging Studies Brain CT 11/14/17 12:32 IMPRESSION: Postoperative changes involving the right frontal lobe as described. No acute abnormality is seen. Electronically Signed: Иван Almanza MD at 14:27 EST Tel [phone], Service support , Chest X-Ray 11/14/17 12:32 IMPRESSION: Stable examination. No acute abnormality is seen. Electronically Signed: Иван Almanza MD at 14:36 EST Tel [phone], Service support , Abdomen/Pelvis CT 11/14/17 12:33 IMPRESSION: Fecal material is seen in the colon. Stable left adrenal adenoma. Electronically Signed: Иван Almanza MD at 14:34 EST Tel [phone], Service support , Clinical Impression(s) from Imaging Studies Brain CT 11/14/17 12:32 IMPRESSION: Postoperative changes involving the right frontal lobe as described. No acute abnormality is seen. Electronically Signed: Иван Almanza MD at 14:27 EST Tel [phone], Service support , Chest X-Ray 11/14/17 12:32 IMPRESSION: Stable examination. No acute abnormality is seen. Electronically Signed: Иван Almanza MD at 14:36 EST Tel [phone], Service support , Abdomen/Pelvis CT 11/14/17 12:33 IMPRESSION: Fecal material is seen in the colon. Stable left adrenal adenoma. Electronically Signed: Иван Almanza MD at 14:34 EST Tel [phone], Service support , Laboratory Results - last 24 hr 11/16/17 11/16/17 07:20 07:20 WBC 3.6 L RBC 3.59 L Hgb 10.6 L Hct 33.2 L MCV 92.5 MCH 29.5 MCHC 31.9 L RDW 13.5 RDW Differential 44.5 H Plt Count 137 L MPV 10.5 Immature Gran % (Auto) 0.000 Neut % (Auto) 69.2 Lymph % (Auto) 20.0 [place] % (Auto) 8.2 Eos % (Auto) 2.3 Baso % (Auto) 0.3 Absolute Neuts (auto) 2.5 Absolute Lymphs (auto) 0.71 L Total Counted Not Reportable Sodium 142 Potassium 4.2 Chloride 110 H Carbon Dioxide 21.0 Anion Gap 11 BUN 9 Creatinine 0.81 Estim Creat Clear Calc 41.12 Est GFR (MDRD) Af Amer 88 Est GFR (MDRD) Non-Af 73 BUN/Creatinine Ratio 11.1 Glucose 87 Calcium 8.4 L Microbiology 11/16/17 15:30 Stool Stool Lactoferrin - Final 11/14/17 14:49 Urine Catheter - Catheter Urine Culture - Final Escherichia coli 11/14/17 12:40 Mucosa - Nasopharyngeal Influenza Types A,B Direct FA (CHELA) - Final none Operations: None Procedures: None Summary of Care Provided: Patient is a 77-year-old female with a past medical history of non-small cell lung cancer with mets to the colon(S/P R hemicolectomy), seizure disorder, Parkinson's disease, COPD, Alzheimer's disease, hypertension, B12 deficiency pancytopenia and hyperlipidemia who presented to the [facility] emergency room on 11/14/2017 complaining of nausea/vomiting/diarrhea. She had not been eating or drinking for 3 days and had a syncopal episode at home. She has a history of multiple episodes of Clostridium difficile. She additionally complained of dysuria. Vital signs at presentation to the emergency room were temp 98.4, pulse rate 83, blood pressure 135/68, respiratory rate 17 and she was 97-100% saturated on room air. White blood cell count was 3.6 with hemoglobin of 10.7 and platelets of 133,000. Normal diff. These values are baseline for her. Electrolytes were unremarkable and the BUN was 17 with a creatinine of 0.96 and the BUN/creatinine ratio of 17.7. LFTs are unremarkable and troponin was less than 0.02. Lipase was normal. UA shows 0-5 white blood cells and is positive for nitrites. CT scan of the abdomen and pelvis was remarkable for diverticulosis, evidence of prior right hemicolectomy and a stable left adrenal adenoma. Diet was advanced as tolerated and she had no further diarrhea . She was cleaning her plate prior to DC and had no nausea. She was discharged home with a prescription for Bentyl for cramps. At the time of DC she was alert and appeared in no distress. THe abdomen was soft and had normal BS's. Lungs were CTA. Discharge Activity: Return to Normal Activity Call your doctor if you observe: Fever of 101 or Higher, - - Recurrent nausea/vomiting/diarrhea. Worsening abdominal pain or cramping. Home Medications: Medications to take at Discharge Lamotrigine 200 mg PO BID 12/25/15 Memantine HCl [Namenda Xr] 28 mg PO DAILY 12/25/15 Topiramate [Topamax] 100 mg PO BID 12/25/15 Cyanocobalamin (Vitamin B-12) [Vitamin B-12] 1,000 mcg PO DAILY 12/30/15 Polyethylene Glycol 3350 [Miralax] 17 gm PO DAILY PRN 12/30/15 Budesonide/Formoterol 160/4.5 [Symbicort 160/4.5 Mcg Inhaler (SP)] 2 puff INHALATION BID 09/19/16 Carbidopa/Levodopa 25/100 [Sinemet 25/100] 2 tablet PO 0700,1200,1800 09/19/16 Carbidopa/Levodopa 50/200 [Sinemet CR 50/200] 1 tablet PO QHS 09/19/16 Fluticasone Propionate 2 sprays NASAL DAILY 01/10/17 Levetiracetam [Keppra] 1,500 mg PO BID 11/14/17 Dicyclomine HCl [Bentyl] 10 mg PO TIDAC PRN #10 cap 11/16/17 Following Prescrptions Were Given to Patient: Dicyclomine HCl [Bentyl] 10 mg PO TIDAC PRN #10 cap PRN Reason: abdominal cramping Primary Care Physician: NOT,DEFINED [NON-STAFF] - Patient Instructions: ED Gastroenteritis Viral Disposition: Home Minutes spent on discharge:: 30 Meaningful Use Info Meaningful Use Diagnoses (Choose all that apply): None applicable Code Visit Inpatient E&M: 45407 Disch Hosp
--- NOTE | 2017-11-16 18:55 | DS.PCM_ITS ---
Discharge Date and Diagnosis Date of Admission: 11/14/17 Date of Discharge: 11/16/17 - Primary Discharge Diagnosis Active and Suspected Problems Viral Gastroenteritis (Acute) Dehydration (Acute) Syncope and collapse (Acute) - due to dehydration and orthostasis - Secondary Discharge Diagnosis Chronic Problems Pancytopenia (Chronic) Seizure disorder, grand mal (Chronic) Hyperlipidemia (Chronic) Anxiety (Chronic) Alzheimer's dementia (Chronic) COPD (chronic obstructive pulmonary disease) (Chronic) Cephalgia (Chronic) Hypertension (Chronic) B12 deficiency (Chronic) Uncontrolled seizures (Chronic) Low back pain (Chronic) Lung cancer (Chronic) Hospital Course and Treatment Imaging Results: Clinical Impression(s) from Imaging Studies Brain CT 11/14/17 12:32 IMPRESSION: Postoperative changes involving the right frontal lobe as described. No acute abnormality is seen. Electronically Signed: Иван Almanza MD at 14:27 EST Tel [phone], Service support , Chest X-Ray 11/14/17 12:32 IMPRESSION: Stable examination. No acute abnormality is seen. Electronically Signed: Иван Almanza MD at 14:36 EST Tel [phone], Service support , Abdomen/Pelvis CT 11/14/17 12:33 IMPRESSION: Fecal material is seen in the colon. Stable left adrenal adenoma. Electronically Signed: Иван Almanza MD at 14:34 EST Tel [phone], Service support , Clinical Impression(s) from Imaging Studies Brain CT 11/14/17 12:32 IMPRESSION: Postoperative changes involving the right frontal lobe as described. No acute abnormality is seen. Electronically Signed: Иван Almanza MD at 14:27 EST Tel [phone], Service support , Chest X-Ray 11/14/17 12:32 IMPRESSION: Stable examination. No acute abnormality is seen. Electronically Signed: Иван Almanza MD at 14:36 EST Tel [phone], Service support , Abdomen/Pelvis CT 11/14/17 12:33 IMPRESSION: Fecal material is seen in the colon. Stable left adrenal adenoma. Electronically Signed: Иван Almanza MD at 14:34 EST Tel [phone], Service support , Laboratory Results - last 24 hr 11/16/17 11/16/17 07:20 07:20 WBC 3.6 L RBC 3.59 L Hgb 10.6 L Hct 33.2 L MCV 92.5 MCH 29.5 MCHC 31.9 L RDW 13.5 RDW Differential 44.5 H Plt Count 137 L MPV 10.5 Immature Gran % (Auto) 0.000 Neut % (Auto) 69.2 Lymph % (Auto) 20.0 [place] % (Auto) 8.2 Eos % (Auto) 2.3 Baso % (Auto) 0.3 Absolute Neuts (auto) 2.5 Absolute Lymphs (auto) 0.71 L Total Counted Not Reportable Sodium 142 Potassium 4.2 Chloride 110 H Carbon Dioxide 21.0 Anion Gap 11 BUN 9 Creatinine 0.81 Estim Creat Clear Calc 41.12 Est GFR (MDRD) Af Amer 88 Est GFR (MDRD) Non-Af 73 BUN/Creatinine Ratio 11.1 Glucose 87 Calcium 8.4 L Microbiology 11/16/17 15:30 Stool Stool Lactoferrin - Final 11/14/17 14:49 Urine Catheter - Catheter Urine Culture - Final Escherichia coli 11/14/17 12:40 Mucosa - Nasopharyngeal Influenza Types A,B Direct FA (CHELA) - Final none Operations: None Procedures: None Summary of Care Provided: Patient is a 77-year-old female with a past medical history of non-small cell lung cancer with mets to the colon(S/P R hemicolectomy), seizure disorder, Parkinson's disease, COPD, Alzheimer's disease, hypertension, B12 deficiency pancytopenia and hyperlipidemia who presented to the [facility] emergency room on 11/14/2017 complaining of nausea/vomiting/diarrhea. She had not been eating or drinking for 3 days and had a syncopal episode at home. She has a history of multiple episodes of Clostridium difficile. She additionally complained of dysuria. Vital signs at presentation to the emergency room were temp 98.4, pulse rate 83, blood pressure 135/68, respiratory rate 17 and she was 97-100% saturated on room air. White blood cell count was 3.6 with hemoglobin of 10.7 and platelets of 133,000. Normal diff. These values are baseline for her. Electrolytes were unremarkable and the BUN was 17 with a creatinine of 0.96 and the BUN/creatinine ratio of 17.7. LFTs are unremarkable and troponin was less than 0.02. Lipase was normal. UA shows 0-5 white blood cells and is positive for nitrites. CT scan of the abdomen and pelvis was remarkable for diverticulosis, evidence of prior right hemicolectomy and a stable left adrenal adenoma. Diet was advanced as tolerated and she had no further diarrhea . She was cleaning her plate prior to DC and had no nausea. She was discharged home with a prescription for Bentyl for cramps. At the time of DC she was alert and appeared in no distress. THe abdomen was soft and had normal BS's. Lungs were CTA. Discharge Activity: Return to Normal Activity Call your doctor if you observe: Fever of 101 or Higher, - - Recurrent nausea/ vomiting/diarrhea. Worsening abdominal pain or cramping. Home Medications: Medications to take at Discharge Lamotrigine 200 mg PO BID 12/25/15 Memantine HCl [Namenda Xr] 28 mg PO DAILY 12/25/15 Topiramate [Topamax] 100 mg PO BID 12/25/15 Cyanocobalamin (Vitamin B-12) [Vitamin B-12] 1,000 mcg PO DAILY 12/30/15 Polyethylene Glycol 3350 [Miralax] 17 gm PO DAILY PRN 12/30/15 Budesonide/Formoterol 160/4.5 [Symbicort 160/4.5 Mcg Inhaler (SP)] 2 puff INHALATION BID 09/19/16 Carbidopa/Levodopa 25/100 [Sinemet 25/100] 2 tablet PO 0700,1200,1800 09/19/16 Carbidopa/Levodopa 50/200 [Sinemet CR 50/200] 1 tablet PO QHS 09/19/16 Fluticasone Propionate 2 sprays NASAL DAILY 01/10/17 Levetiracetam [Keppra] 1,500 mg PO BID 11/14/17 Dicyclomine HCl [Bentyl] 10 mg PO TIDAC PRN #10 cap 11/16/17 Following Prescrptions Were Given to Patient: Dicyclomine HCl [Bentyl] 10 mg PO TIDAC PRN #10 cap PRN Reason: abdominal cramping Primary Care Physician: NOT,DEFINED [NON-STAFF] - Patient Instructions: ED Gastroenteritis Viral Disposition: Home Minutes spent on discharge:: 30 Meaningful Use Info Meaningful Use Diagnoses (Choose all that apply): None applicable Code Visit Inpatient E&M: 48877 Disch Hosp
== END 2017-11-16 18:55 | disposition home or self-care (01) | DRG 641 ==
LOC: ED 12:54 → MS2 16:00
PROVIDERS: Physician Assistant; Admitting Provider Internal Medicine; Emergency Provider Emergency Medicine; Visit Provider Internal Medicine
DX: E86.0 Dehydration (principal); A08.4 Viral intestinal infection, unspecified; D61.818 Other pancytopenia; G20 Parkinson's disease; K57.90 Diverticulosis of intestine, part unspecified, without perforation or abscess without bleeding; J44.9 Chronic obstructive pulmonary disease, unspecified; G40.909 Epilepsy, unspecified, not intractable, without status epilepticus; R55 Syncope and collapse; R30.0 Dysuria; I10 Essential (primary) hypertension; G30.9 Alzheimer's disease, unspecified; F02.80 Dementia in other diseases classified elsewhere, unspecified severity, without behavioral disturbance, psychotic disturbance, mood disturbance, and anxiety; E78.5 Hyperlipidemia, unspecified; E53.8 Deficiency of other specified B group vitamins; F41.9 Anxiety disorder, unspecified; Z79.899 Other long term (current) drug therapy; Z88.0 Allergy status to penicillin; Z92.21 Personal history of antineoplastic chemotherapy; Z92.3 Personal history of irradiation; Z86.19 Personal history of other infectious and parasitic diseases; Z85.118 Personal history of other malignant neoplasm of bronchus and lung; Z85.038 Personal history of other malignant neoplasm of large intestine; Z86.011 Personal history of benign neoplasm of the brain; Z87.891 Personal history of nicotine dependence; Z90.49 Acquired absence of other specified parts of digestive tract
CPT/HCPCS: 36415; 70450; 71045; 74176; 80048; 80053; 81001; 83605; 83630; 83690; 84484; 85025; 87077; 87086; 87088; 87186; 87506; 87804; 93005; 94640; 97162; 97165; 97802; 99285; J7030; J7040; Q9967; 90686; A4216; J2405